=== PATIENT | female | born 1980 | race Caucasian/White ===

== ENCOUNTER 2017-12-11 13:40 | Emergency (ER) | payer MEDICAID ==
[2017-12-11] MEDS ORDERED: ONDANSETRON HCL IV 4 MG/2 ML VIAL IVP ONE ×2 (14:36→15:40)
[2017-12-11] MEDS ORDERED: 0.9 % SODIUM CHLORIDE 1,000 ML BAG IV ONE ×2 (14:47→17:25)
[2017-12-11] MEDS ORDERED: ACETAMINOPHEN 1,000 MG/100 ML BTL IVPB ONE (14:47)
--- NOTE | 2017-12-11 14:49 | Emergency Department Record ---
History of Present Illness - General Chief Complaint: Abdominal Pain Stated Complaint: VOMITING,DIARRHEA,CRAMPING,ABDOMINAL PAIN Time Seen by Provider: 12/11/17 14:43 Source: Patient Mode of Arrival: Ambulatory Limitations: No limitations - History of Present Illness Initial Comments: 37 yo female presents with nausea, vomiting and diarrhea that started at 7am. She was normal at her baseline yesterday. Since the onset of vomiting she has developed body aches as well. No definite sick contacts. No fevers. No recent antibiotics. No blood in the vomit or diarrhea. She has prior gall bladder removal. The diarrhea is occurring every 30 minutes. The pain is in waves of cramps. MD Complaint: Abdominal pain, Other Onset/Timin -: Hour(s) Location: LUQ, RUQ, RLQ Radiation: Back Migration to: No migration Severity scale (1-10): 4 Quality: Aching Consistency: Constant Improves With: Nothing Worsens With: Nothing Associated Symptoms: Diarrhea, Nausea, Vomiting - Related Data Patient : No Previous Rx's Medication Instructions Recorded Ondansetron [Zofran Odt] 4 mg PO Q8H #20 tab.rapdis 12/11/17 Allergies Allergy/AdvReac Type Severity Reaction Status Date / Time Iodinated Contrast- Oral and Allergy HIVES Verified 12/11/17 14:58 IV Dye Penicillins Allergy ANAPHYLAXIS Unverified 05/09/17 07:29 Travel Screening - Travel/Exposure Within Last 30 Days Have you traveled within the last 30 days?: No Review of Systems Constitutional: Reports: Chills, Fever, Malaise, Weakness Eyes: Denies: Eye discharge, Photophobia ENT: Denies: Congestion, Throat pain Respiratory: Denies: Cough, Dyspnea, Hemoptysis, Stridor Cardiovascular: Denies: Chest pain, Palpitations, Syncope Endocrine: Reports: Fatigue. Denies: Polydipsia, Polyuria Gastrointestinal: Reports: Abdominal pain, Diarrhea (every 30 minutes, no blood) , Nausea, Vomiting. Denies: Constipation, Hematemesis, Hematochezia, Melena Genitourinary: Denies: Dysuria, Urgency Musculoskeletal: Reports: Back pain, Myalgia. Denies: Arthralgia, Joint swelling Skin: Denies: Bruising, Change in color, Rash Neurological: Denies: Headache, Numbness, Weakness Psychiatric: Denies: Anxiety Hematological/Lymphatic: Denies: Easy bleeding, Easy bruising, Swollen glands Past Medical History - SOCIAL HISTORY Smoking Status: Former smoker Alcohol Use: None Drug Use: None - RESPIRATORY Hx Respiratory Disorders: No - CARDIOVASCULAR Hx Cardio Disorders: No - NEURO Hx Neuro Disorders: Yes Hx Seizures: Yes (with PCN) - GI Hx GI Disorders: No - Hx Genitourinary Disorders: No - ENDOCRINE Hx Endocrine Disorders: No Comment:: positive autoimmune indicator - MUSCULOSKELETAL Hx Musculoskeletal Disorders: Yes Hx Back Injury: Yes - PSYCH Hx Psych Problems: Yes Hx Anxiety: Yes Hx Depression: Yes - HEMATOLOGY/ONCOLOGY Hx Hematology/Oncology Disorders: No Family Medical History Any Significant Family History?: No Physical Exam - General General Appearance: Alert, Oriented x3, Cooperative, No acute distress Limitations: No limitations - Head Head exam: Normal inspection - Eye Eye exam: Normal appearance, PERRL. negative: Conjunctival injection, Scleral icterus - ENT ENT exam: Normal exam, Mucous membranes moist Ear exam: Normal external inspection Nasal Exam: Normal inspection Mouth exam: Normal external inspection Teeth exam: Normal inspection Throat exam: Normal inspection. negative: Tonsillar erythema, Tonsillomegaly, Tonsillar exudate, R peritonsillar mass, L peritonsillar mass - Neck Neck exam: Normal inspection, Full ROM. negative: Tenderness - Respiratory Respiratory exam: Normal lung sounds bilaterally. negative: Respiratory distress - Cardiovascular Cardiovascular Exam: Regular rate, Normal rhythm, Normal heart sounds - GI/Abdominal GI/Abdominal exam: Soft, Tenderness (mild diffuse, but very soft abdomen) - Rectal Rectal exam: Deferred - exam: Deferred - Extremities Extremities exam: Normal inspection, Full ROM, Normal capillary refill. negative: Tenderness - Back Back exam: Reports: Normal inspection, Full ROM. Denies: Muscle spasm, Rash noted, Tenderness - Neurological Neurological exam: Alert, Normal gait, Oriented X3, Reflexes normal - Psychiatric Psychiatric exam: Normal affect, Normal mood. negative: Agitated, Anxious - Skin Skin exam: Dry, Intact, Normal color, Warm Course Vital Signs 12/11/17 14:08 Temperature 100.8 F H Pulse Rate 65 Respiratory 22 Rate Blood Pressure 104/68 Pulse Ox 99 - Reevaluation(s) Reevaluation #1: The labs were reviewed The WBC count is 18 The CMP was reviewed. The HCO3 is 20 and the AG is 21 otherwise normal 12/11/17 16:03 12/11/17 17:26 The nausea is improved but not gone The pain is better but not resolved Additional IVF and Antiemetic ordered She is tender so CT scan ordered as well. 12/11/17 18:[address] scan was reviewed. No acute changes. No acute process. The appendix and intestines are normal. No renal stones. 12/11/17 18:[address] was reviewed with the patient. The patient is feeling better with Phenergan but nausea and cramps continue. We discussed the options of OBV in the hospital or DC home with a mandatory recheck in the ED tomorrow morning. She prefers DC home with recheck. We discussed reasons to return sooner. We discussed home care until follow up. 12/12/17 10:47 Medical Decision Making - Lab Data Result diagrams: 12/11/17 14:30 12/11/17 14:30 Disposition Disposition: Discharge Clinical Impression: Vomiting and diarrhea Disposition: Home, Self-Care Condition: (1) Good Instructions: Acute Nausea and Vomiting (ED), Abdominal Pain (ED) Additional Instructions: Return in the morning to recheck with me your condition Return sooner if you are vomiting, worse, pain not controlled or any new concerns. Prescriptions: Ondansetron [Zofran Odt] 4 mg PO Q8H #20 tab.rapdis Forms: Patient Portal Access Time of Disposition: 18:57 Quality - Quality Measures Quality Measures: N/A - Blood Pressure Screening Does Patient Have Any of the Following: No Blood Pressure Classification: Pre-Hypertensive BP Reading Systolic Measurement: 122 Diastolic Measurement: 77 Screening for High Blood Pressure: < Pre-Hypertensive BP, F/U Documented > [ G8950] Pre-Hypertensive Follow-up Interventions: Referral to alternative/primary care provider.
[2017-12-11 14:55] LABS: HEMATOCRIT 43.3 % (35.0-47.0); HEMOGLOBIN 14.7 gm/dl (11.6-16.0); MEAN CELL VOLUME 88.7 fl (81-97); MEAN CORPUSCULAR HEMOGLOBIN 30.1 pg (27-33); MEAN CORPUSCULAR HGB CONC 33.9 g/dl (32-36); MEAN PLATELET VOLUME 10.6 fl (7.4-10.4); PLATELET COUNT 272 K/uL (130-400); RED BLOOD COUNT 4.88 M/uL (3.80-5.40); RED CELL DISTRIBUTION WIDTH 12.4 % (11.5-14.5)
[2017-12-11 15:15] LABS: ALB/GLOB RATIO 1.5 (1.1-1.8); ALBUMIN 4.3 g/dL (4.0-5.0); ALKALINE PHOSPHATASE 87 U/L (35-104); ALT/SGPT 13 U/L (<33); AST/SGOT 15 U/L (10.0-35.0); BLOOD UREA NITROGEN 10 mg/dL (6-20); CREATININE 0.6 mg/dL (0.5-0.9); EST GLOMERULAR FILTRATION RATE > 60 mL/min; GLUCOSE,RANDOM 93 mg/dL (74-109); TOTAL PROTEIN 7.1 g/dL (6.6-8.7)
[2017-12-11 15:30] LABS: LIPASE 35 U/L (13-60)
[2017-12-11] MEDS ORDERED: PROMETHAZINE HCL 25 MG/ML VIAL IVP ONE (17:25)
[2017-12-11] MEDS ORDERED: ONDANSETRON 4 MG ODT TABLET SL ONE (18:45)
[2017-12-11] MEDS ORDERED: PROMETHAZINE HCL 25 MG TABLET PO ONE (18:56)
[2017-12-11] MEDS ORDERED: PROMETHAZINE HCL 12.5 MG in 0.9 % SODIUM CHLORIDE 100ML 100 ML IVPB ONE (19:04)
[2017-12-11] MEDS ORDERED: HYOSCYAMINE SULFATE ODT 0.125 MG TAB.SUBL SL ONE (19:33)
--- NOTE | 2017-12-11 20:40 | Emergency Department Record ---
History of Present Illness - General Chief Complaint: Abdominal Pain Stated Complaint: VOMITING,DIARRHEA,CRAMPING,ABDOMINAL PAIN Time Seen by Provider: 12/11/17 14:43 Source: Patient Mode of Arrival: Ambulatory Limitations: No limitations - History of Present Illness MD Complaint: Abdominal pain, Other Onset/Timin -: Hour(s) Location: LUQ, RUQ, RLQ Radiation: Back Migration to: No migration Severity scale (1-10): 4 Quality: Aching Consistency: Constant Improves With: Nothing Worsens With: Nothing Associated Symptoms: Diarrhea, Nausea, Vomiting - Related Data Patient : No Previous Rx's Medication Instructions Recorded Ondansetron [Zofran Odt] 4 mg PO Q8H #20 tab.rapdis 12/11/17 Allergies Allergy/AdvReac Type Severity Reaction Status Date / Time Iodinated Contrast- Oral and Allergy HIVES Verified 12/11/17 14:58 IV Dye Penicillins Allergy ANAPHYLAXIS Unverified 05/09/17 07:29 Travel Screening - Travel/Exposure Within Last 30 Days Have you traveled within the last 30 days?: No Review of Systems Constitutional: Reports: Chills, Fever, Malaise, Weakness Eyes: Denies: Eye discharge, Photophobia ENT: Denies: Congestion, Throat pain Respiratory: Denies: Cough, Dyspnea, Hemoptysis, Stridor Cardiovascular: Denies: Chest pain, Palpitations, Syncope Endocrine: Reports: Fatigue. Denies: Polydipsia, Polyuria Gastrointestinal: Reports: Abdominal pain, Diarrhea (every 30 minutes, no blood) , Nausea, Vomiting. Denies: Constipation, Hematemesis, Hematochezia, Melena Genitourinary: Denies: Dysuria, Urgency Musculoskeletal: Reports: Back pain, Myalgia. Denies: Arthralgia, Joint swelling Skin: Denies: Bruising, Change in color, Rash Neurological: Denies: Headache, Numbness, Weakness Psychiatric: Denies: Anxiety Hematological/Lymphatic: Denies: Easy bleeding, Easy bruising, Swollen glands Past Medical History - SOCIAL HISTORY Smoking Status: Former smoker Alcohol Use: None Drug Use: None - RESPIRATORY Hx Respiratory Disorders: No - CARDIOVASCULAR Hx Cardio Disorders: No - NEURO Hx Neuro Disorders: Yes Hx Seizures: Yes (with PCN) - GI Hx GI Disorders: No - Hx Genitourinary Disorders: No - ENDOCRINE Hx Endocrine Disorders: No Comment:: positive autoimmune indicator - MUSCULOSKELETAL Hx Musculoskeletal Disorders: Yes Hx Back Injury: Yes - PSYCH Hx Psych Problems: Yes Hx Anxiety: Yes Hx Depression: Yes - HEMATOLOGY/ONCOLOGY Hx Hematology/Oncology Disorders: No Family Medical History Any Significant Family History?: No Physical Exam - General Limitations: No limitations Course Vital Signs 12/11/17 12/11/17 12/11/17 14:08 16:16 17:32 Temperature 100.8 F H Pulse Rate 65 Pulse Rate [ 82 93 H Pulse Ox Probe] Respiratory 22 20 22 Rate Blood Pressure 104/68 Blood Pressure 108/68 114/72 [Left Arm] Pulse Ox 99 96 97 12/11/17 12/11/17 18:41 19:52 Temperature 99.7 F H Pulse Rate Pulse Rate [ 83 91 H Pulse Ox Probe] Respiratory 20 18 Rate Blood Pressure Blood Pressure 97/60 122/83 [Left Arm] Pulse Ox 99 99 - Reevaluation(s) Reevaluation #1: 12/11/17 20:39 Patient was reassessed at this time, reports mild improvement in her symptoms but reports that she does want to go home at this time. Patient appears stable for discharge at this time with Zofran and Phenergan as directed. Medical Decision Making - Lab Data Result diagrams: 12/11/17 14:30 12/11/17 14:30 Lab Results 12/11/17 12/11/17 12/11/17 Range/Units 14:30 14:30 14:30 WBC 18.0 H (4.2-12.2) K/uL RBC 4.88 (3.80-5.40) M/uL Hgb 14.7 (11.6-16.0) gm/dl Hct 43.3 (35.0-47.0) % MCV 88.7 (81-97) fl MCH 30.1 (27-33) pg MCHC 33.9 (32-36) g/dl RDW 12.4 (11.5-14.5) % Plt Count 272 (130-400) K/uL MPV 10.6 H (7.4-10.4) fl Neutrophils % 87.0 H (47-80) % Eosinophils % Not Reportable Basophils % Not Reportable Lymphocytes 8.0 L (16-45) % Monocytes 5.0 (0-9) % Sodium 141 (136-145) mmol/L Potassium 4.0 (3.4-4.5) mmol/L Chloride 100 (98-107) mmol/L Carbon Dioxide 21.0 L (22-29) mmol/L Anion Gap 20.0 H (7-16) BUN 10 (6-20) mg/dL Creatinine 0.6 (0.5-0.9) mg/dL Estimated GFR > 60 mL/min Random Glucose 93 (74-109) mg/dL Calcium 8.9 (8.6-10.0) mg/dL Total Bilirubin 0.80 (0.2-1.0) mg/dL AST 15 (10.0-35.0) U/L ALT 13 (<33) U/L Alkaline Phosphatase 87 (35-104) U/L Total Protein 7.1 (6.6-8.7) g/dL Albumin 4.3 (4.0-5.0) g/dL Globulin 2.8 (1.4-4.8) gm/dL Albumin/Globulin Ratio 1.5 (1.1-1.8) Lipase 35 (13-60) U/L Serum HCG, Qual Negative (NEGATIVE) Disposition Disposition: Discharge Clinical Impression: Vomiting and diarrhea Disposition: Home, Self-Care Condition: (1) Good Instructions: Acute Nausea and Vomiting (ED), Abdominal Pain (ED) Additional Instructions: Return in the morning to recheck with me your condition Return sooner if you are vomiting, worse, pain not controlled or any new concerns. Prescriptions: Ondansetron [Zofran Odt] 4 mg PO Q8H #20 tab.rapdis Forms: Patient Portal Access Time of Disposition: 20:40 Quality - Quality Measures Quality Measures: N/A - Blood Pressure Screening Does Patient Have Any of the Following: No Blood Pressure Classification: Normal BP Reading Systolic Measurement: 104 Diastolic Measurement: 68 Screening for High Blood Pressure: < Normal BP, F/U Not Required > [G8783]
[2017-12-11] MEDS ORDERED: ACETAMINOPHEN 500 MG TABLET PO ONE (21:04)
--- NOTE | 2017-12-13 07:56 | CT SCAN REPORT ---
EXAM: CT OF THE ABDOMEN AND PELVIS WITHOUT CONTRAST HISTORY: ABDOMINAL PAIN. TECHNIQUE: CT of the abdomen and pelvis was performed without oral or IV contrast. This limits evaluation of bowel and solid visceral organs. Comparison: None. FINDINGS: Limited evaluation of the lung bases is unremarkable. The osseous structures are grossly intact. probable fatty infiltrative change to the liver. Small hiatal hernia. The spleen, adrenal glands, pancreas, and kidneys are unremarkable. Negative for urinary tract calculus or hydronephrosis. No gross evidence for bowel obstruction. No free air or free fluid. IUD in place. The appendix is not well seen. No pericecal inflammation. IMPRESSION: NEGATIVE FOR URINARY TRACT CALCULUS OR HYDRONEPHROSIS. FATTY INFILTRATIVE CHANGE TO THE LIVER. JOB NUMBER: [id number] [facility]
== END 2017-12-11 21:26 | disposition home or self-care (01) ==
LOC: ER 13:40
DX: R11.2 Nausea with vomiting, unspecified (principal); R19.7 Diarrhea, unspecified; R10.84 Generalized abdominal pain; Z87.891 Personal history of nicotine dependence
CPT/HCPCS: 99284 ×2; 96376; 96365; 96375; 83690; 80053; 84703; 85027; 74176; J1980; J2405; J2550; J7030; Q0170

== ENCOUNTER 2018-12-08 09:57 | Emergency (ER) | payer MEDICAID ==
[2018-12-08 10:24] LABS: STREP A SCREEN POSITIVE (NEGATIVE)
[2018-12-08 10:31] LABS: INFLUENZA A NEGATIVE (NEGATIVE); INFLUENZA B NEGATIVE (NEGATIVE)
--- NOTE | 2018-12-08 10:55 | Emergency Department Record ---
History of Present Illness - General Chief Complaint: Fever Stated Complaint: FEVER, SORE THROAT,VOMITTING Time Seen by Provider: 12/08/18 10:18 Source: Patient Mode of Arrival: Ambulatory Limitations: No limitations - History of Present Illness Initial Comments: ptspiked 104 temp in the night and has a sore throat and a productive yellow cough. Complaint: Fever Onset/Timin -: Hour(s) Maximum Temperature: 104.0 F Temperature Source: Oral Associated Symptoms: Vomiting, Night sweats, Sore throat Treatments Prior to Arrival: Acetaminophen Treatment Prior to Arrival Comment:: 1g tylenol at 9am - Related Data Previous Rx's Medication Instructions Recorded Cephalexin [Keflex] 500 mg PO BID #20 cap 12/08/18 Allergies Allergy/AdvReac Type Severity Reaction Status Date / Time Iodinated Contrast- Oral and Allergy HIVES Unverified 11/20/18 09:17 IV Dye Penicillins Allergy ANAPHYLAXIS Unverified 11/20/18 09:17 Travel Screening - Travel/Exposure Within Last 30 Days Have you traveled within the last 30 days?: No Review of Systems Reviewed: No additional complaints except as noted below Constitutional: Reports: As per HPI, Chills, Fever. Denies: Malaise, Night sweats, Weakness, Weight change Eyes: Reports: As per HPI. Denies: Eye discharge, Eye pain, Photophobia, Vision change ENT: Reports: As per HPI, Congestion, Throat pain. Denies: Dental pain, Ear pain, Epistaxis, Hearing loss Respiratory: Reports: As per HPI, Cough. Denies: Dyspnea, Hemoptysis, Stridor, Wheezes Cardiovascular: Reports: As per HPI. Denies: Arrhythmia, Chest pain, Dyspnea on exertion, Edema, Murmurs, Orthopnea, Palpitations, Paroxysmal nocturnal dyspnea, Rheumatic Fever, Syncope Endocrine: Reports: As per HPI. Denies: Fatigue, Heat or cold intolerance, Polydipsia, Polyuria Gastrointestinal: Reports: As per HPI. Denies: Abdominal pain, Constipation, Diarrhea, Hematemesis, Hematochezia, Melena, Nausea, Vomiting Genitourinary: Reports: As per HPI. Denies: Abnormal menses, Discharge, Dyspareunia, Dysuria, Frequency, Hematuria, Incontinence, Retention, Urgency Musculoskeletal: Reports: As per HPI. Denies: Arthralgia, Back pain, Gout, Joint swelling, Myalgia, Neck pain Skin: Reports: As per HPI. Denies: Bruising, Change in color, Change in hair/nails, Lesions, Pruritus, Rash Neurological: Reports: As per HPI. Denies: Abnormal gait, Confusion, Headache, Numbness, Paresthesias, Seizure, Tingling, Tremors, Vertigo, Weakness Psychiatric: Reports: As per HPI. Denies: Anxiety, Auditory hallucinations, Depression, Homicidal thoughts, Suicidal thoughts, Visual hallucinations Hematological/Lymphatic: Reports: As per HPI. Denies: Anemia, Blood Clots, Easy bleeding, Easy bruising, Swollen glands Past Medical History - SOCIAL HISTORY Smoking Status: Former smoker - RESPIRATORY Hx Respiratory Disorders: No - CARDIOVASCULAR Hx Cardio Disorders: No - NEURO Hx Neuro Disorders: Yes Hx Seizures: Yes (with PCN) - GI Hx GI Disorders: No - Hx Genitourinary Disorders: No - ENDOCRINE Hx Endocrine Disorders: No Comment:: positive autoimmune indicator - MUSCULOSKELETAL Hx Musculoskeletal Disorders: Yes Hx Back Injury: Yes - PSYCH Hx Psych Problems: Yes Hx Anxiety: Yes Hx Depression: Yes - HEMATOLOGY/ONCOLOGY Hx Hematology/Oncology Disorders: No Family Medical History Any Significant Family History?: No Physical Exam - General General Appearance: Alert, Oriented x3, Cooperative, Mild distress - Head Head exam: Normal inspection - Eye Eye exam: Normal appearance, PERRL, EOMI Pupils: Normal accommodation - ENT ENT exam: Normal exam, Mucous membranes moist, Normal external ear exam, Normal orophraynx Ear exam: Normal external inspection. negative: External canal tenderness Nasal Exam: Normal inspection. negative: Discharge, Sinus tenderness Mouth exam: Normal external inspection, Tongue normal Teeth exam: Normal inspection. negative: Dental caries Throat exam: Tonsillar erythema, Tonsillar exudate - Neck Neck exam: Full ROM, Lymphadenopathy. negative: Tenderness - Respiratory Respiratory exam: Normal lung sounds bilaterally. negative: Respiratory distress - Cardiovascular Cardiovascular Exam: Regular rate, Normal rhythm, Normal heart sounds - GI/Abdominal GI/Abdominal exam: Soft, Normal bowel sounds. negative: Tenderness - Rectal Rectal exam: Deferred - exam: Deferred - Extremities Extremities exam: Normal inspection, Full ROM, Normal capillary refill. negative: Tenderness - Back Back exam: Reports: Normal inspection, Full ROM. Denies: Muscle spasm, Rash noted, Tenderness - Neurological Neurological exam: Alert, CN II-XII intact, Normal gait, Oriented X3 - Psychiatric Psychiatric exam: Normal affect, Normal mood - Skin Skin exam: Dry, Intact, Normal color, Warm Course Vital Signs 12/08/18 10:00 Temperature 99.3 F Pulse Rate 98 H Respiratory 20 Rate Blood Pressure 122/87 Pulse Ox 96 Medical Decision Making - Lab Data Lab Results 12/08/18 Range/Units 10:07 Influenza Type A Ag Negative (NEGATIVE) Influenza Type B Ag Negative (NEGATIVE) Group A Strep Screen Positive H (NEGATIVE) Disposition Disposition: Discharge Clinical Impression: Strep pharyngitis Disposition: Home, Self-Care Condition: (1) Good Instructions: Fever in Adults (ED), Strep Throat (ED) Additional Instructions: follow up with family doctor. return sooner if worse. push fluids.tylenol and motrin as needed Prescriptions: Cephalexin [Keflex] 500 mg PO BID #20 cap Forms: Patient Portal Access Quality - Quality Measures Quality Measures: N/A - Blood Pressure Screening Does Patient Have Any of the Following: No Blood Pressure Classification: Pre-Hypertensive BP Reading Systolic Measurement: 122 Diastolic Measurement: 87 Screening for High Blood Pressure: < Pre-Hypertensive BP, F/U Documented > [G8950] Pre-Hypertensive Follow-up Interventions: Follow-up with rescreen every year.
--- NOTE | 2018-12-09 12:23 | RADIOLOGY REPORT ---
DATE: 12/08/2018. EXAM: TWO VIEWS OF THE CHEST. HISTORY: FEVER AND SORE THROAT. TECHNIQUE: Two views of the chest are provided. COMPARISON: CT scan of the abdomen and pelvis dated 12/11/2017. FINDINGS: The cardiomediastinal silhouette is within normal limits for size and contour. The clau appear unremarkable. There is no radiographic evidence of a focal infiltrate, pleural effusion, or pneumothorax. IMPRESSION: NO RADIOGRAPHIC EVIDENCE OF AN ACUTE INTRATHORACIC PROCESS. Job Number: [id number] [facility]
== END 2018-12-08 11:44 | disposition home or self-care (01) ==
LOC: ER 09:57
DX: J02.0 Streptococcal pharyngitis (principal); R50.81 Fever presenting with conditions classified elsewhere
CPT/HCPCS: 71046; 87400; 87880; 99283